=== PATIENT | male | born 1980 | race African-American/Black ===

== ENCOUNTER 2019-01-18 12:02 | Inpatient (IN) | payer OTHER ==
[2019-01-18 14:22] VITALS: BMI 24.4
--- NOTE | 2019-01-18 14:49 | HP ---
COWS - Scale Resting Pulse: 1= [place] 81-100 Sweatin=Flushed/Facial Moisture Restless Observation: 0= Sits Still Pupil Size: 0= Normal to Room Light Bone or Joint Aches: 2= Severe Diffuse Aches Runny Nose/ Eye Tearin= Runny Nose/Eyes GI Upset > 30mins: 1= Stomach Cramp Tremor Observation: 2= Slight Tremor Visible Yawning Observation: 2= >3x During Session Anxiety or Irritability: 2=Irritable/Anxious Goose Flesh Skin: 0=Smooth Skin COWS Score: 14 CIWA Score - Admission Criteria [facility]ASAS Guidelines: Admission for Medically Managed Detox: Requires at least one of the followin. CIWA greater than 12 2. Seizures within the past 24 hours 3. Delirium tremens within the past 24 hours 4. Hallucinations within the past 24 hours 5. Acute intervention needed for co occurring medical disorder 6. Acute intervention needed for co occurring psychiatric disorder 7. Severe withdrawal that cannot be handled at a lower level of care (continued vomiting, continued diarrhea, abnormal vital signs) requiring intravenous medication and/or fluids 8. Admission ROS [facility] - HPI Chief Complaint: I am here to get clean and care myself. Allergies/Adverse Reactions: Allergies Allergy/AdvReac Type Severity Reaction Status Date / Time trazodone AdvReac Verified 01/18/19 14:56 History of Present Illness: pt is a 38yrold male with a history of heroin dependence seeking detox for treatment. Pt is IVD user and states two weeks ago was seen at [facility] for trouble using my right hand and it became numb and an x-ray revealed there was a needle imbedded in my skin. I now realize i need this taken care of when i finish with detox. Exam Limitations: No Limitations - Ebola screening Have you traveled outside of the country in the last 21 days: No Have you had contact with anyone from an Ebola affected area: No Have you been sick,other than usual withdrawal symptoms: No Do you have a fever: No - Review of Systems Constitutional: Chills, Diaphoresis, Night Sweats, Changes in sleep EENT: reports: Tearing Respiratory: reports: No Symptoms reported Cardiac: reports: No Symptoms Reported GI: reports: Poor Appetite, Poor Fluid Intake : reports: Other (h/o of penile priapism) Musculoskeletal: reports: Back Pain (right arm d/t a needle imbedded two weeks ago), Muscle Pain Integumentary: reports: Other (pt has a needle imbedded in right forearm past 2weeks ago.) Neuro: reports: No Symptoms reported Endocrine: reports: No Symptoms Reported Hematology: reports: No Symptoms Reported Psychiatric: reports: Judgement Intact, Mood/Affect Appropiate, Orientated x3, Agitated, Anxious Other Systems: Reviewed and Negative Patient History - Patient Medical History Hx Anemia: No Hx Asthma: No Hx Chronic Obstructive Pulmonary Disease (COPD): No Hx Cancer: No Hx Cardiac Disorders: No Hx Congestive Heart Failure: No Hx Hypertension: No Hx Hypercholesterolemia: No Hx Pacemaker: No HX Cerebrovascular Accident: No Hx Seizures: No Hx Dementia: No Hx Diabetes: No Hx Gastrointestinal Disorders: No Hx Liver Disease: No Hx Genitourinary Disorders: No Hx Sexually Transmitted Disorders: No Hx Renal Disease (ESRD): No Hx Thyroid Disease: No Hx Human Immunodeficiency Virus (HIV): Yes (since 2007; just prescribed syntuza since yesterday) Hx Hepatitis C: No Hx Depression: Yes Hx Suicide Attempt: Yes (two years tried to OD with pills;denies any S/H ideations) Hx Bipolar Disorder: No Hx Schizophrenia: Yes - Patient Surgical History Past Surgical History: Yes Hx Genitourinary Surgery: Yes (two priapism condition 5yrs ago d/t trazadone ) - PPD History Previous Implant?: Yes Documented Results: Negative w/o proof PPD to be Administered?: Yes - Reproductive History Patient is a Female of Child Bearing Age (11 -55 yrs old): No - Smoking Cessation Smoking history: Current every day smoker Have you smoked in the past 12 months: Yes Aproximately how many cigarettes per day: 10 Hx Chewing Tobacco Use: No Initiated information on smoking cessation: Yes 'Breaking Loose' booklet given: 01/18/19 - Substance & Tx. History Hx Alcohol Use: No Hx Substance Use: Yes Substance Use Type: Cocaine, Heroin Hx Substance Use Treatment: Yes (last detox 2yrs ago [facility]) - Substances abused Heroin Substance route: Injection Frequency: Daily Amount used: 3 BAGS Age of first use: 19 Date of last use: 01/16/19 Cocaine Substance route: Injection Frequency: Daily Amount used: $120 Age of first use: 18 Date of last use: 01/17/19 Family Disease History - Family Disease History Family History: Denies Admission Physical Exam [facility] - Vital Signs Vital Signs: Vital Signs - 24 hr 01/18/19 14:07 Temperature 98.6 F Pulse Rate 90 Respiratory 18 Rate Blood Pressure 119/63 - Physical General Appearance: Yes: Appropriately Dressed, Moderate Distress, Tremorous, Irritable, Sweating, Anxious HEENTM: Yes: Hearing grossly Normal, Nasal Congestion, Rhinorrhea Respiratory: Yes: Lungs Clear, Normal Breath Sounds, No Respiratory Distress Neck: Yes: No masses,lesions,Nodules Breast: Yes: Within Normal Limits Cardiology: Yes: Regular Rhythm, Regular Rate, S1, S2 Abdominal: Yes: Normal Bowel Sounds, Non Tender, Soft Genitourinary: Yes: Within Normal Limits Back: Yes: Normal Inspection Musculoskeletal: Yes: full range of Motion, Back pain Extremities: Yes: Normal Capillary Refill, Normal Inspection, Non-Tender, Tremors Neurological: Yes: Fully Oriented, Alert, Normal Response Integumentary: Yes: Normal Color, Diaphoresis Lymphatic: Yes: Within Normal Limits - Diagnostic (1) Opioid dependence with withdrawal Current Visit: Yes Status: Chronic (2) Nicotine dependence Current Visit: Yes Status: Chronic Qualifiers: Nicotine product type: cigarettes Substance use status: uncomplicated Qualified Code(s): F17.210 - Nicotine dependence, cigarettes, uncomplicated (3) Injury due to hypodermic needle Current Visit: Yes Status: Acute Comment: pt will f/u with [facility] after detox. pt had a xray done already. Cleared for Admission [facility] - Detox or Rehab [facility] Level of Care: Medically Managed Detox Regimen/Protocol: Methadone Breathalyzer - Breathalyzer Breathalyzer: 0 Urine Drug Screen - Test Device Lot number: [id number] Expiration date: 10/04/20 - Control Is test valid?: Yes - Results Drug screen NEGATIVE: No Urine drug screen results: THC-Marijuana, SEVEN-Cocaine, MOP-Opiates Inpatient Rehab Admission - Rehab Decision to Admit Inpatient rehab admission?: No
[2019-01-18] MEDS ORDERED: hydrOXYzine PAMOATE 25 MG CAPSULE (FP) PO PRN (14:58)
[2019-01-18] MEDS ORDERED: cloNIDine HCL 0.1 MG TABLET PO PRN (14:58)
[2019-01-18] MEDS ORDERED: NICOTINE POLACRILEX 4 MG GUM BUC PRN (14:58)
[2019-01-18] MEDS ORDERED: P-EPHED 60MG/TRIPROLIDI 2.5MG TABLET PO PRN (14:58)
[2019-01-18] MEDS ORDERED: DICYCLOMINE HCL 10 MG CAPSULE PO PRN (14:58)
[2019-01-18] MEDS ORDERED: ACETAMINOPHEN 325 MG TABLET (FP) PO PRN ×2 (14:58)
[2019-01-18] MEDS ORDERED: MAGNESIUM CITRATE 300 ML BOTTLE PO PRN (14:58)
[2019-01-18] MEDS ORDERED: MENTHOL/PHENOL 1 EACH UD MM PRN (14:58)
[2019-01-18] MEDS ORDERED: ONDANSETRON *ODT* 4 MG TABLET SL PRN (14:58)
[2019-01-18] MEDS ORDERED: MAGNESIUM HYDROX 2400MG/30ML ORAL SUSPENSION 30 ML CUP PO PRN (14:58)
[2019-01-18] MEDS ORDERED: MAG HYDROX/AL HYDROX/SIMETH 30 ML UNIT-DOSE CUP PO PRN (14:58)
[2019-01-18] MEDS: diazePAM 5 MG TABLET PO PRN ×2 (17:10→22:06)
[2019-01-18] MEDS: NICOTINE 21 MG/24 HOURS TOPICAL PATCH TD SCH (17:24)
[2019-01-18] MEDS: THIAMINE HCL 100 MG TABLET (FP) PO SCH (22:05)
[2019-01-18] MEDS ORDERED: METHADONE HCL 10 MG TABLET (FOR DETOX USE ONLY) PO ONE (23:00)
[2019-01-19] MEDS: PRENATAL VITAMINS W/ FOLIC ACID TABLET (FP) PO SCH (09:40)
[2019-01-19] MEDS ORDERED: METHADONE HCL 10 MG TABLET (FOR DETOX USE ONLY) PO ONE (10:00)
[2019-01-19] MEDS: NICOTINE 21 MG/24 HOURS TOPICAL PATCH TD SCH (10:02)
[2019-01-19 10:04] LABS: HEMOGLOBIN 13.5 GM/dL (11.7-16.9); MCH 30.1 pg (25.7-33.7); MCHC 32.9 g/dl (32.0-35.9); MEAN CELL VOLUME 91.7 fl (80-96); MEAN PLT VOLUME 8.9 fl (7.5-11.1); PLATELET COUNT 290 K/MM3 (134-434); RBC 4.48 M/mm3 (4.00-5.60); RDW 15.1 % (11.9-15.9); WHITE BLOOD COUNT 5.5 K/mm3 (4.0-10.0)
[2019-01-19 10:30] LABS: ALBUMIN 3.6 g/dl (3.4-5.0); BILIRUBIN,TOTAL 0.5 mg/dL (0.2-1); CREATININE 0.8 mg/dL (0.55-1.3); POTASSIUM 4.7 mmol/L (3.5-5.1); TOT PROT 8.5 g/dl (6.4-8.2)
--- NOTE | 2019-01-19 10:53 | EKG ---
Test Reason : Blood Pressure : / mmHG Vent. Rate : 082 BPM Atrial Rate : 082 BPM P-R Int : 164 ms QRS Dur : 088 ms QT Int : 390 ms P-R-T Axes : 056 046 042 degrees QTc Int : 455 ms NORMAL SINUS RHYTHM NORMAL ECG NO PREVIOUS ECGS AVAILABLE Confirmed by DEREK BERMAN MD ([id number]) on 01/19/2019 10:53:24 AM Referred By: Confirmed By:DEREK BERMAN MD
--- NOTE | 2019-01-19 10:54 | PN ---
BHS COWS - Scale Resting Pulse: 0= [place] 80 or Below Sweatin= Chills/Flushing Restless Observation: 0= Sits Still Pupil Size: 0= Normal to Room Light Bone or Joint Aches: 4=Acute Joint/Muscle Pain Runny Nose/ Eye Tearin= None GI Upset > 30mins: 0= None Tremor Observation of Outstretched Hands: 2= Slight Tremor Visible Yawning Observation: 1= 1-2x During Session Anxiety or Irritability: 1=Feels Anxious/Irritable Goose Flesh Skin: 0=Smooth Skin COWS Score: 9 BHS Progress Note (SOAP) Subjective: C/O MUSCLE ACHES, ANXIETY,NIGHT SWEATS,INTERMITTENT SLEEP. Objective: 01/19/19 10:53 Vital Signs 01/19/19 01/19/19 01/19/19 03:30 06:01 09:07 Temperature 96.6 F L 96.3 F L Pulse Rate 88 84 Respiratory 18 18 16 Rate Blood Pressure 114/68 93/57 L Laboratory Tests 01/19/19 01/19/19 06:00 06:00 WBC 5.5 RBC 4.48 Hgb 13.5 Hct 41.0 MCV 91.7 MCH 30.1 MCHC 32.9 RDW 15.1 Plt Count 290 MPV 8.9 Sodium 135 L Potassium 4.7 Chloride 102 Carbon Dioxide 26 Anion Gap 7 L BUN 9 Creatinine 0.8 Est GFR (CKD-EPI)AfAm 131.34 Est GFR (CKD-EPI)NonAf 113.32 Random Glucose 86 Calcium 9.0 Total Bilirubin 0.5 AST 93 H ALT 68 H Alkaline Phosphatase 77 Total Protein 8.5 H Albumin 3.6 LABS NOTED SEROLOGY PENDING Assessment: 01/19/19 10:54 WITHDRAWAL SX Plan: CONTINUE DETOX
--- NOTE | 2019-01-19 11:18 | CONSULT ---
[facility] Psychiatric Consult - Data Date of interview: 01/19/19 Admission source: [facility] Identifying data: First admission to [facility] for this 38 y/o AA male self- referred for detoxification (heroin, cocaine). Examined on . Patient is , no children, domiciled ([place] setting), unemployed and supported on SSI benefits. Substance Abuse History: Confirmed by the patient. Details in current [facility] report (reviewed in session) : Smoking history: Current every day smoker. Have you smoked in the past 12 months: Yes. Aproximately how many cigarettes per day : 10. Hx Chewing Tobacco Use: No. Initiated information on smoking cessation: Yes. 'Breaking Loose' booklet given: 01/18/19. - Substance & Tx. History. Hx Alcohol Use: No. Hx Substance Use: Yes. Substance Use Type: Cocaine, Heroin. Hx Substance Use Treatment: Yes (last detox 2yrs ago [facility]). - Substances abused. Heroin. Substance route: Injection. Frequency: Daily. Amount used: 3 BAGS. Age of first use: 19. Date of last use: 01/16/19. Cocaine. Substance route: Injection. Frequency: Daily. Amount used: $120. Age of first use: 18. Date of last use: 01/17/19 Medical History: Remarkable for HIV infection since 2007 (on ART medications), antecedent of priapism (trazodone) and current issue of foreign object (needle) embedded in right forearm. Psychiatric History: Patient endorses a history of multiple psychiatric hospitalizations ([facility], [facility], [place], [facility]). Diagnosed with Schizophrenia + MDD. Medicated with wellbutrin XL 150 mg/day + olanzapine 5 mg/hs. Mr Fitzgerald sees a psychiatrist at [facility] clinic in the [place].Presents with a history of three suicide attempts (overdoses with medications). Most recent attempt occurred three years ago (overdose with ASA). Physical/Sexual Abuse/Trauma History: Patient denies history of abuse. Additional Comment: Urine drug screen results: THC-Marijuana, SEVEN-Cocaine, MOP- Opiates. Noted. Mental Status Exam - Mental Status Exam Alert and Oriented to: Time, Place, Person Cognitive Function: Good Patient Appearance: Disheveled Mood: Withdrawn Affect: Mood Congruent, Constricted Patient Behavior: Fatigued, Appropriate, Cooperative Speech Pattern: Clear, Appropriate Voice Loudness: Normal Thought Process: Goal Oriented Thought Disorder: Not Present Hallucinations: Denies Suicidal Ideation: Denies Homicidal Ideation: Denies Insight/Judgement: Poor Sleep: Well Appetite: Good Muscle strength/Tone: Normal Gait/Station: Normal Psychiatric Findings - Problem List ([place] 1, 2,3) (1) Opioid dependence with withdrawal Current Visit: Yes Status: Acute (2) Cocaine dependence Current Visit: Yes Status: Chronic (3) Nicotine dependence Current Visit: Yes Status: Chronic Qualifiers: Nicotine product type: cigarettes Substance use status: uncomplicated Qualified Code(s): F17.210 - Nicotine dependence, cigarettes, uncomplicated (4) Substance induced mood disorder Current Visit: Yes Status: Chronic (5) History of schizophrenia Current Visit: Yes Status: Chronic - Initial Treatment Plan Initial Treatment Plan: Psychoeducation. Sleep hygiene. Detoxification. Support. AA/NA meetings. Medications resumed as : wellbutrin XL 150 mg po daily + olanzapine 5 mg po hs. Side effects/bvenefits of both drugs are discussed with the patient. Mr Fitzgerald gave verbal consent to MD. Boyle.
[2019-01-19] MEDS: diazePAM 5 MG TABLET PO PRN ×2 (13:45→19:42)
[2019-01-19] MEDS: METHOCARBAMOL 500 MG TABLET PO PRN (19:41)
[2019-01-19] MEDS: OLANZapine 5 MG TABLET PO SCH (22:13)
[2019-01-19] MEDS: THIAMINE HCL 100 MG TABLET (FP) PO SCH (22:13)
[2019-01-19] MEDS: MELATONIN 5 MG TABLETS PO PRN (22:14)
[2019-01-20] MEDS: diazePAM 5 MG TABLET PO PRN ×3 (08:00→22:08)
[2019-01-20] MEDS: BISMUTH SUBSALICYLATE 524 MG/30 ML UD PO PRN (08:00)
[2019-01-20] MEDS: NICOTINE 21 MG/24 HOURS TOPICAL PATCH TD SCH (09:50)
[2019-01-20] MEDS: PRENATAL VITAMINS W/ FOLIC ACID TABLET (FP) PO SCH (09:52)
[2019-01-20] MEDS ORDERED: METHADONE HCL 10 MG TABLET (FOR DETOX USE ONLY) PO ONE (10:00)
--- NOTE | 2019-01-20 11:59 | PN ---
BHS COWS - Scale Resting Pulse: 1= [place] 81-100 Sweatin= Chills/Flushing Restless Observation: 1= Difficult to Sit Still Pupil Size: 0= Normal to Room Light Bone or Joint Aches: 1= Mild Discomfort Runny Nose/ Eye Tearin= None GI Upset > 30mins: 0= None Tremor Observation of Outstretched Hands: 1= Tremor [place], Not Seen Yawning Observation: 0= None Anxiety or Irritability: 1=Feels Anxious/Irritable Goose Flesh Skin: 0=Smooth Skin COWS Score: 6 BHS Progress Note (SOAP) Subjective: feeling ok today rest-welled more energy discuss medication assisted maintenance treatment program Objective: 01/20/19 11:57 Vital Signs Temperature 97.2 F L 01/20/19 09:04 Pulse Rate 86 01/20/19 09:04 Respiratory Rate 18 01/20/19 09:04 Blood Pressure 101/59 L 01/20/19 09:04 O2 Sat by Pulse Oximetry (%) Laboratory Last Values WBC 5.5 K/mm3 (4.0-10.0) 01/19/19 06:00 RBC 4.48 M/mm3 (4.00-5.60) 01/19/19 06:00 Hgb 13.5 GM/dL (11.7-16.9) 01/19/19 06:00 Hct 41.0 % (35.4-49) 01/19/19 06:00 MCV 91.7 fl (80-96) 01/19/19 06:00 MCH 30.1 pg (25.7-33.7) 01/19/19 06:00 MCHC 32.9 g/dl (32.0-35.9) 01/19/19 06:00 RDW 15.1 % (11.9-15.9) 01/19/19 06:00 Plt Count 290 K/MM3 (134-434) 01/19/19 06:00 MPV 8.9 fl (7.5-11.1) 01/19/19 06:00 Sodium 135 mmol/L (136-145) L 01/19/19 06:00 Potassium 4.7 mmol/L (3.5-5.1) 01/19/19 06:00 Chloride 102 mmol/L (98-107) 01/19/19 06:00 Carbon Dioxide 26 mmol/L (21-32) 01/19/19 06:00 Anion Gap 7 MMOL/L (8-16) L 01/19/19 06:00 BUN 9 mg/dL (7-18) 01/19/19 06:00 Creatinine 0.8 mg/dL (0.55-1.3) 01/19/19 06:00 Est GFR (CKD-EPI)AfAm 131.34 01/19/19 06:00 Est GFR (CKD-EPI)NonAf 113.32 01/19/19 06:00 Random Glucose 86 mg/dL (74-106) 01/19/19 06:00 Calcium 9.0 mg/dL (8.5-10.1) 01/19/19 06:00 Total Bilirubin 0.5 mg/dL (0.2-1) 01/19/19 06:00 AST 93 U/L (15-37) H 01/19/19 06:00 ALT 68 U/L (13-61) H 01/19/19 06:00 Alkaline Phosphatase 77 U/L (45-117) 01/19/19 06:00 Total Protein 8.5 g/dl (6.4-8.2) H 01/19/19 06:00 Albumin 3.6 g/dl (3.4-5.0) 01/19/19 06:00 RPR Titer Nonreactive (NONREACTIVE) 01/19/19 06:00 lab noted encourage narcan kit 01/20/19 11:59 Assessment: 01/20/19 11:59 withdrawal sx Plan: continue detox
[2019-01-20] MEDS: IBUPROFEN 400 MG TABLET (FP) PO PRN (17:47)
[2019-01-20] MEDS: OLANZapine 5 MG TABLET PO SCH (22:05)
[2019-01-20] MEDS: MELATONIN 5 MG TABLETS PO PRN (22:05)
[2019-01-20] MEDS: THIAMINE HCL 100 MG TABLET (FP) PO SCH (22:05)
[2019-01-20] MEDS: METHOCARBAMOL 500 MG TABLET PO PRN (22:06)
[2019-01-21] MEDS: diazePAM 5 MG TABLET PO PRN (05:32)
[2019-01-21] MEDS: BISMUTH SUBSALICYLATE 524 MG/30 ML UD PO PRN ×2 (05:33→10:38)
[2019-01-21] MEDS ORDERED: METHADONE HCL 10 MG TABLET (FOR DETOX USE ONLY) PO ONE (10:00)
[2019-01-21] MEDS: NICOTINE 21 MG/24 HOURS TOPICAL PATCH TD SCH (10:36)
[2019-01-21] MEDS: PRENATAL VITAMINS W/ FOLIC ACID TABLET (FP) PO SCH (10:36)
--- NOTE | 2019-01-21 12:29 | PN ---
BHS COWS - Scale Resting Pulse: 1= [place] 81-100 Sweatin= Chills/Flushing Restless Observation: 0= Sits Still Pupil Size: 0= Normal to Room Light Bone or Joint Aches: 1= Mild Discomfort Runny Nose/ Eye Tearin= None GI Upset > 30mins: 0= None Tremor Observation of Outstretched Hands: 1= Tremor [place], Not Seen Yawning Observation: 0= None Anxiety or Irritability: 0= None Goose Flesh Skin: 0=Smooth Skin COWS Score: 4 BHS Progress Note (SOAP) Subjective: mild body ache otherwise doing ok today tolerate food and fluid well Objective: 01/21/19 12:31 Vital Signs Temperature 97.6 F 01/21/19 09:26 Pulse Rate 85 01/21/19 09:26 Respiratory Rate 18 01/21/19 09:26 Blood Pressure 108/70 01/21/19 09:26 O2 Sat by Pulse Oximetry (%) Laboratory Last Values WBC 5.5 K/mm3 (4.0-10.0) 01/19/19 06:00 RBC 4.48 M/mm3 (4.00-5.60) 01/19/19 06:00 Hgb 13.5 GM/dL (11.7-16.9) 01/19/19 06:00 Hct 41.0 % (35.4-49) 01/19/19 06:00 MCV 91.7 fl (80-96) 01/19/19 06:00 MCH 30.1 pg (25.7-33.7) 01/19/19 06:00 MCHC 32.9 g/dl (32.0-35.9) 01/19/19 06:00 RDW 15.1 % (11.9-15.9) 01/19/19 06:00 Plt Count 290 K/MM3 (134-434) 01/19/19 06:00 MPV 8.9 fl (7.5-11.1) 01/19/19 06:00 Sodium 135 mmol/L (136-145) L 01/19/19 06:00 Potassium 4.7 mmol/L (3.5-5.1) 01/19/19 06:00 Chloride 102 mmol/L (98-107) 01/19/19 06:00 Carbon Dioxide 26 mmol/L (21-32) 01/19/19 06:00 Anion Gap 7 MMOL/L (8-16) L 01/19/19 06:00 BUN 9 mg/dL (7-18) 01/19/19 06:00 Creatinine 0.8 mg/dL (0.55-1.3) 01/19/19 06:00 Est GFR (CKD-EPI)AfAm 131.34 01/19/19 06:00 Est GFR (CKD-EPI)NonAf 113.32 01/19/19 06:00 Random Glucose 86 mg/dL (74-106) 01/19/19 06:00 Calcium 9.0 mg/dL (8.5-10.1) 01/19/19 06:00 Total Bilirubin 0.5 mg/dL (0.2-1) 01/19/19 06:00 AST 93 U/L (15-37) H 01/19/19 06:00 ALT 68 U/L (13-61) H 01/19/19 06:00 Alkaline Phosphatase 77 U/L (45-117) 01/19/19 06:00 Total Protein 8.5 g/dl (6.4-8.2) H 01/19/19 06:00 Albumin 3.6 g/dl (3.4-5.0) 01/19/19 06:00 RPR Titer Nonreactive (NONREACTIVE) 01/19/19 06:00 lab noted Assessment: 01/21/19 12:31 mild opiate withdrawal sx Plan: continue detox
[2019-01-21] MEDS: METHOCARBAMOL 500 MG TABLET PO PRN (17:25)
[2019-01-21] MEDS: THIAMINE HCL 100 MG TABLET (FP) PO SCH (22:08)
[2019-01-21] MEDS: OLANZapine 5 MG TABLET PO SCH (22:08)
[2019-01-21] MEDS: MELATONIN 5 MG TABLETS PO PRN (22:09)
[2019-01-22] MEDS: IBUPROFEN 400 MG TABLET (FP) PO PRN (05:56)
[2019-01-22] MEDS ORDERED: METHADONE HCL 5 MG TABLET (FOR DETOX USE ONLY) PO ONE (06:00)
[2019-01-22 09:09] VITALS: BP 123/74; PULSE 95; TEMP 97.8
--- NOTE | 2019-01-22 09:10 | DS ---
[facility] Detox Discharge Summary Admission Date: 01/18/19 Discharge Date: 01/22/19 - History Present History: Opioid Dependence Additional Comments: 38 years old male admitted on 01/18/19 for opiate withdrawal stabilization had diarrhea "last night" x 1 encourage oral fluid and imodium prn feeling better today alert no acute distress aftercare [facility] - Physical Exam Results Vital Signs: Vital Signs Temperature 97.8 F 01/22/19 09:08 Pulse Rate 95 H 01/22/19 09:08 Respiratory Rate 20 01/22/19 09:08 Blood Pressure 123/74 01/22/19 09:08 O2 Sat by Pulse Oximetry (%) Pertinent Admission Physical Exam Findings: opiate withdrawal sx Laboratory Last Values WBC 5.5 K/mm3 (4.0-10.0) 01/19/19 06:00 RBC 4.48 M/mm3 (4.00-5.60) 01/19/19 06:00 Hgb 13.5 GM/dL (11.7-16.9) 01/19/19 06:00 Hct 41.0 % (35.4-49) 01/19/19 06:00 MCV 91.7 fl (80-96) 01/19/19 06:00 MCH 30.1 pg (25.7-33.7) 01/19/19 06:00 MCHC 32.9 g/dl (32.0-35.9) 01/19/19 06:00 RDW 15.1 % (11.9-15.9) 01/19/19 06:00 Plt Count 290 K/MM3 (134-434) 01/19/19 06:00 MPV 8.9 fl (7.5-11.1) 01/19/19 06:00 Sodium 135 mmol/L (136-145) L 01/19/19 06:00 Potassium 4.7 mmol/L (3.5-5.1) 01/19/19 06:00 Chloride 102 mmol/L (98-107) 01/19/19 06:00 Carbon Dioxide 26 mmol/L (21-32) 01/19/19 06:00 Anion Gap 7 MMOL/L (8-16) L 01/19/19 06:00 BUN 9 mg/dL (7-18) 01/19/19 06:00 Creatinine 0.8 mg/dL (0.55-1.3) 01/19/19 06:00 Est GFR (CKD-EPI)AfAm 131.34 01/19/19 06:00 Est GFR (CKD-EPI)NonAf 113.32 01/19/19 06:00 Random Glucose 86 mg/dL (74-106) 01/19/19 06:00 Calcium 9.0 mg/dL (8.5-10.1) 01/19/19 06:00 Total Bilirubin 0.5 mg/dL (0.2-1) 01/19/19 06:00 AST 93 U/L (15-37) H 01/19/19 06:00 ALT 68 U/L (13-61) H 01/19/19 06:00 Alkaline Phosphatase 77 U/L (45-117) 01/19/19 06:00 Total Protein 8.5 g/dl (6.4-8.2) H 01/19/19 06:00 Albumin 3.6 g/dl (3.4-5.0) 01/19/19 06:00 RPR Titer Nonreactive (NONREACTIVE) 01/19/19 06:00 lab noted - Treatment Hospital Course: Detox Protocol Followed, Detoxed Safely, Responded well, Discharged Condition Good, Rehab Referral Accepted Patient has Accepted a Rehab Referral to: [facility] - Medication Discharge Medications: Ambulatory Orders Bupropion HCl [Wellbutrin Xl -] 150 mg PO DAILY 01/18/19 Darunavir/Cob/Emtri/Tenof Alaf [Symtuza [id number] mg Tab] 1 each PO DAILY 01/18/19 Olanzapine [Zyprexa -] 5 mg PO DAILY 01/18/19 Naloxone HCl [Narcan] 4 mg NS ASDIR 01/20/19 - Diagnosis (1) Opioid dependence with withdrawal Current Visit: Yes Status: Acute (2) Nicotine dependence Current Visit: Yes Status: Acute Qualifiers: Nicotine product type: cigarettes Substance use status: in withdrawal Qualified Code(s): F17.213 - Nicotine dependence, cigarettes, with withdrawal (3) Substance induced mood disorder Current Visit: Yes Status: Suspected (4) HIV (human immunodeficiency virus infection) Current Visit: Yes Status: Chronic Qualifiers: HIV symptom status: asymptomatic Qualified Code(s): Z21 - Asymptomatic human immunodeficiency virus [HIV] infection status - AMA Did Patient Leave Against Medical Advice: No
[2019-01-22] MEDS ORDERED: METHADONE HCL 10 MG TABLET (FOR DETOX USE ONLY) PO ONE (10:00)
[2019-01-22] MEDS: NICOTINE 21 MG/24 HOURS TOPICAL PATCH TD SCH (10:12)
[2019-01-22] MEDS: PRENATAL VITAMINS W/ FOLIC ACID TABLET (FP) PO SCH (10:12)
[2019-01-23] MEDS ORDERED: METHADONE HCL 5 MG TABLET (FOR DETOX USE ONLY) PO SCH (06:00)
== END 2019-01-22 12:30 | disposition other institution (70) | DRG 773 ==
LOC: YASAS 12:02 → Y3N 15:16
PROVIDERS: ADMIT Surgery; ATTEND Surgery
PROC: HZ2ZZZZ Detoxification Services for Substance Abuse Treatment (ICD-10-PCS; principal; 2019-01-18)
DX: F11.23 Opioid dependence with withdrawal (principal); F14.20 Cocaine dependence, uncomplicated; F17.213 Nicotine dependence, cigarettes, with withdrawal; F19.24 Other psychoactive substance dependence with psychoactive substance-induced mood disorder; F20.9 Schizophrenia, unspecified; Z21 Asymptomatic human immunodeficiency virus [HIV] infection status; Z91.5 Personal history of self-harm
CPT/HCPCS: 36415; 80053; 85027; 86593; 93005; 93010; J0735

== ENCOUNTER 2019-04-07 08:50 | Inpatient (IN) | payer OTHER ==
[2019-04-07 09:24] VITALS: BMI 23.0
--- NOTE | 2019-04-07 09:36 | HP ---
COWS - Scale Resting Pulse: 0= [place] 80 or Below Sweatin= Chills/Flushing Restless Observation: 1= Difficult to Sit Still Pupil Size: 1= Pupils >than Normal Bone or Joint Aches: 2= Severe Diffuse Aches Runny Nose/ Eye Tearin= Runny Nose/Eyes GI Upset > 30mins: 2= Nausea/Diarrhea Tremor Observation: 2= Slight Tremor Visible Yawning Observation: 0= None Anxiety or Irritability: 2=Irritable/Anxious Goose Flesh Skin: 0=Smooth Skin COWS Score: 13 CIWA Score - Admission Criteria [facility] Guidelines: Admission for Medically Managed Detox: Requires at least one of the followin. CIWA greater than 12 2. Seizures within the past 24 hours 3. Delirium tremens within the past 24 hours 4. Hallucinations within the past 24 hours 5. Acute intervention needed for co occurring medical disorder 6. Acute intervention needed for co occurring psychiatric disorder 7. Severe withdrawal that cannot be handled at a lower level of care (continued vomiting, continued diarrhea, abnormal vital signs) requiring intravenous medication and/or fluids 8. Admission ROS [facility] - HPI Chief Complaint: I need help to stop using heroin and cocaine Allergies/Adverse Reactions: Allergies Allergy/AdvReac Type Severity Reaction Status Date / Time trazodone AdvReac Verified 04/07/19 09:17 History of Present Illness: this 38 years old male with heroin and cocaine dependence,seeking detox,seen at [facility] last night, had previous admissions in detox and rehab,last [facility] 01/18/19 to 01/22/19,rehab 01/22/19 to 01/29/19 but relapsing hiv sine 2007 on med fell 2 days ago has abrasion in both knees nicotine dependence 10 cigarette/day,would like to have nicotine patch and gum schizophrenia longest sobriety 6 months - Ebola screening Have you traveled outside of the country in the last 21 days: No (N) Have you had contact with anyone from an Ebola affected area: No Do you have a fever: No - Review of Systems Constitutional: Chills, Loss of Appetite, Malaise, Night Sweats, Changes in sleep, Weakness EENT: reports: Tearing, Nose Congestion Respiratory: reports: No Symptoms reported Cardiac: reports: No Symptoms Reported GI: reports: Nausea, Poor Appetite, Indigestion : reports: No Symptoms Reported Integumentary: reports: Dryness Neuro: reports: Headache, Tremors Endocrine: reports: No Symptoms Reported Hematology: reports: No Symptoms Reported, Other (hiv) Psychiatric: reports: No Sypmtoms Reported, Judgement Intact, Mood/Affect Appropiate, Orientated x3, other (schizophrenia) Patient History - Patient Medical History Hx Anemia: No Hx Asthma: No Hx Chronic Obstructive Pulmonary Disease (COPD): No Hx Cancer: No Hx Cardiac Disorders: No Hx Congestive Heart Failure: No Hx Hypertension: No Hx Hypercholesterolemia: No Hx Pacemaker: No HX Cerebrovascular Accident: No Hx Seizures: No Hx Dementia: No Hx Diabetes: No Hx Gastrointestinal Disorders: No Hx Liver Disease: No Hx Genitourinary Disorders: No Hx Sexually Transmitted Disorders: Yes Hx Renal Disease (ESRD): No Hx Thyroid Disease: No Hx Human Immunodeficiency Virus (HIV): Yes (since 2007; just prescribed syntuza since yesterday) Hx Hepatitis C: No Hx Depression: Yes Hx Suicide Attempt: Yes (overdose 2018) Hx Bipolar Disorder: No Hx Schizophrenia: Yes (on med) Other Medical History: no suicidal,no homicidal - Patient Surgical History Past Surgical History: Yes Hx Neurologic Surgery: No Hx Cataract Extraction: No Hx Cardiac Surgery: No Hx Lung Surgery: No Hx Breast Surgery: No Hx Breast Biopsy: No Hx Abdominal Surgery: No Hx Appendectomy: No Hx Cholecystectomy: No Hx Genitourinary Surgery: Yes (two priapism condition 5yrs ago d/t trazadone ) Hx Section: No Hx Orthopedic Surgery: No Anesthesia Reaction: No - PPD History Previous Implant?: Yes Documented Results: Negative w/proof Implanted On Prior [facility] Admission?: Yes Date: 01/20/19 Results: 0 mm PPD to be Administered?: No - Smoking Cessation Smoking history: Current every day smoker Have you smoked in the past 12 months: Yes Aproximately how many cigarettes per day: 10 Hx Chewing Tobacco Use: No Initiated information on smoking cessation: Yes 'Breaking Loose' booklet given: 04/07/19 - Substance & Tx. History Hx Alcohol Use: No Hx Substance Use: Yes Substance Use Type: Cocaine, Heroin Hx Substance Use Treatment: Yes ([facility] 01/18/19 to 01/22/19 rehab 01/22/19 to ) - Substances abused Heroin Substance route: Injection Frequency: Daily Amount used: 7 BAGS Age of first use: 19 Date of last use: 04/06/19 Cocaine Substance route: Injection Frequency: Daily Amount used: $60 Age of first use: 18 Date of last use: 04/06/19 Family Disease History - Family Disease History Family History: Denies Admission Physical Exam [facility] - Vital Signs Vital Signs: Vital Signs - 24 hr 04/07/19 04/07/19 09:21 09:25 Temperature 96.8 F L 96.8 F L Pulse Rate 68 68 Respiratory 18 18 Rate Blood Pressure 107/78 107/78 - Physical General Appearance: Yes: Moderate Distress, Tremorous, Irritable, Sweating, Anxious HEENTM: Yes: Normal ENT Inspection, ANNAMARIE, Pharynx Normal Respiratory: Yes: Within Normal Limits, Lungs Clear, Normal Breath Sounds Neck: Yes: Within Normal Limits, Supple, Trachea in good position Breast: Yes: Within Normal Limits Cardiology: Yes: Within Normal Limits, Regular Rhythm, Regular Rate, S1, S2 Abdominal: Yes: Within Normal Limits, Normal Bowel Sounds, Non Tender, Flat, Soft Genitourinary: Yes: Within Normal Limits Back: Yes: Muscle Spasm Musculoskeletal: Yes: Back pain, Joint Stiffness, Muscle Pain Extremities: Yes: Tremors Neurological: Yes: manager of change II-XII NML intact, Fully Oriented, Alert, Motor Strength 5/5 Integumentary: Yes: Dry, Other (abrasions both knees) Lymphatic: Yes: Within Normal Limits - Diagnostic (1) Opioid dependence with withdrawal Current Visit: Yes Status: Acute (2) Nicotine dependence Current Visit: Yes Status: Chronic Qualifiers: Nicotine product type: cigarettes Substance use status: in withdrawal Qualified Code(s): F17.213 - Nicotine dependence, cigarettes, with withdrawal (3) Cocaine dependence Current Visit: Yes Status: Chronic (4) HIV (human immunodeficiency virus infection) Current Visit: No Status: Chronic Qualifiers: HIV symptom status: asymptomatic Qualified Code(s): Z21 - Asymptomatic human immunodeficiency virus [HIV] infection status (5) History of schizophrenia Current Visit: No Status: Chronic (6) Abrasion of knee, bilateral Current Visit: Yes Status: Acute Cleared for Admission [facility] - Detox or Rehab [facility] Level of Care: Medically Managed Detox Regimen/Protocol: Methadone Breathalyzer - Breathalyzer Breathalyzer: 0 Urine Drug Screen - Test Device Lot number: [id number] Expiration date: 01/01/21 - Control Is test valid?: Yes - Results Drug screen NEGATIVE: No Urine drug screen results: THC-Marijuana, SEVEN-Cocaine, MOP-Opiates, OXY- Oxycodone, BZO-Benzodiazepines Inpatient Rehab Admission - Rehab Decision to Admit Inpatient rehab admission?: No
[2019-04-07] MEDS ORDERED: ACETAMINOPHEN 325 MG TABLET (FP) PO PRN ×2 (09:48)
[2019-04-07] MEDS ORDERED: hydrOXYzine PAMOATE 25 MG CAPSULE (FP) PO PRN (09:48)
[2019-04-07] MEDS ORDERED: NICOTINE POLACRILEX 2 MG GUM BUC PRN (09:48)
[2019-04-07] MEDS ORDERED: cloNIDine HCL 0.1 MG TABLET PO PRN (09:48)
[2019-04-07] MEDS ORDERED: MAG HYDROX/AL HYDROX/SIMETH 30 ML UNIT-DOSE CUP PO PRN (09:48)
[2019-04-07] MEDS ORDERED: METHOCARBAMOL 500 MG TABLET PO PRN (09:48)
[2019-04-07] MEDS ORDERED: MENTHOL/PHENOL 1 EACH UD MM PRN (09:48)
[2019-04-07] MEDS ORDERED: IBUPROFEN 400 MG TABLET (FP) PO PRN (09:48)
[2019-04-07] MEDS ORDERED: MAGNESIUM CITRATE 300 ML BOTTLE PO PRN (09:48)
[2019-04-07] MEDS ORDERED: MAGNESIUM HYDROX 2400MG/30ML ORAL SUSPENSION 30 ML CUP PO PRN (09:48)
[2019-04-07] MEDS ORDERED: METHADONE HCL 10 MG TABLET (FOR DETOX USE ONLY) PO ONE (09:48)
[2019-04-07] MEDS ORDERED: BISMUTH SUBSALICYLATE 524 MG/30 ML UD PO PRN (09:48)
[2019-04-07] MEDS: NICOTINE 21 MG/24 HOURS TOPICAL PATCH TD SCH (11:21)
[2019-04-07] MEDS: PRENATAL VITAMINS W/ FOLIC ACID TABLET (FP) PO SCH (11:21)
[2019-04-07] MEDS: diazePAM 5 MG TABLET PO PRN (11:22)
--- NOTE | 2019-04-07 11:52 | CONSULT ---
[facility] Psychiatric Consult - Data Date of interview: 04/07/19 Admission source: [facility] Identifying data: Patient is a 38 year old male, currently going through a divorce, without children, unemployed, residing in an [place], and is currently receiving SSI. This is one of multiple admissions for patient. Patient admitted to for opiate and cocaine dependence. Substance Abuse History: - Smoking Cessation. Smoking history: Current every day smoker. Have you smoked in the past 12 months: Yes. Aproximately how many cigarettes per day: 10. Hx Chewing Tobacco Use: No. Initiated information on smoking cessation: Yes. 'Breaking Loose' booklet given: 04/07/19. - Substance & Tx. History. Hx Alcohol Use: No. Hx Substance Use: Yes. Substance Use Type : Cocaine, Heroin. Hx Substance Use Treatment: Yes ([facility] 01/18/19 to 01/22/19 rehab 01/22/19 to 01/29/19). - Substances abused. Heroin. Substance route : Injection. Frequency: Daily. Amount used: 7 BAGS. Age of first use: 19. Date of last use: 04/06/19. Cocaine. Substance route: Injection. Frequency : Daily. Amount used: $60. Age of first use: 18. Date of last use: 04/06/19 Medical History: HIV Psychiatric History: Patient's first psychiatrc contact was at 19 years of age after a suicide attempt via overdose on aspirin which led to an admission to [facility] in [facility]. He was prescribed riperdal and wellbutrin. He is also known to [facility], [facility] and [facility]. Diagnosis of schizophrenia and depression. He reports history auditory/visual halluciation and parania ideations. Patient's most recent psychiatric hospitalization was last month at [facility] after exhibiting visual hallucinations. He reports recieving the haldol deconoate injection upon discharge on 03/18. Patient is currently provided with outpatient care at [facility] and is prescribed haldol 5mg BID + [place] 300mg BID (external records show a prescription of haldol on 03/29/19 (5mg tablets,30 days 60 tablets) and [place] 150mg (30 days 180 tablets.). States that his outpatient psychiatrist wants to continue with PO haldol. Mr. Fitzgerald reports taking his medications two days ago. At present, patient denies auditory /visual hallucinations, suicidal/homicidal ideation. Physical/Sexual Abuse/Trauma History: denies. Additional Comment: Priapism from trazodone. Mental Status Exam - Mental Status Exam Alert and Oriented to: Time, Place, Person Cognitive Function: Good Patient Appearance: Well Groomed Mood: Euthymic Affect: Mood Congruent Patient Behavior: Cooperative Speech Pattern: Appropriate Voice Loudness: Normal Thought Process: Goal Oriented Thought Disorder: Not Present Hallucinations: Denies Suicidal Ideation: Denies Homicidal Ideation: Denies Insight/Judgement: Poor Sleep: Fair Appetite: Fair Muscle strength/Tone: Normal Gait/Station: Normal Psychiatric Findings - Problem List ([place] 1, 2,3) (1) Schizophrenia Current Visit: Yes Status: Chronic (2) Nicotine dependence Current Visit: Yes Status: Chronic Qualifiers: Nicotine product type: cigarettes Substance use status: in withdrawal Qualified Code(s): F17.213 - Nicotine dependence, cigarettes, with withdrawal (3) Opioid dependence with withdrawal Current Visit: Yes Status: Acute (4) Cocaine dependence Current Visit: Yes Status: Chronic - Initial Treatment Plan Initial Treatment Plan: Psychoeducation provided. Detoxification in progress. Will order Haldol 5mg BID. Will hold lithium until lab results are complete. [place] level ordered for 04/08/19. Benefits and side effects discussed. Verbal consent given.
[2019-04-07] MEDS: MELATONIN 5 MG TABLETS PO PRN (22:32)
[2019-04-07] MEDS: HALOPERIDOL 5 MG TABLET (FP) PO SCH (22:33)
[2019-04-07] MEDS: THIAMINE HCL 100 MG TABLET (FP) PO SCH (22:33)
[2019-04-08] MEDS ORDERED: METHADONE HCL 5 MG TABLET (FOR DETOX USE ONLY) ONE (09:47)
[2019-04-08] MEDS ORDERED: METHADONE HCL 10 MG TABLET (FOR DETOX USE ONLY) ONE (09:47)
[2019-04-08] MEDS ORDERED: METHADONE (DETOX) 20 MG, METHADONE (DETOX) 5 MG PO ONE (10:00)
--- NOTE | 2019-04-08 10:16 | PN ---
BHS COWS - Scale Resting Pulse: 0= [place] 80 or Below Sweatin= Chills/Flushing Restless Observation: 1= Difficult to Sit Still Pupil Size: 0= Normal to Room Light Bone or Joint Aches: 2= Severe Diffuse Aches Runny Nose/ Eye Tearin= Runny Nose/Eyes GI Upset > 30mins: 0= None Tremor Observation of Outstretched Hands: 2= Slight Tremor Visible Yawning Observation: 2= >3x During Session Anxiety or Irritability: 1=Feels Anxious/Irritable Goose Flesh Skin: 0=Smooth Skin COWS Score: 11 BHS Progress Note (SOAP) Subjective: body aches sweats mild shakes interrupted sleep agitation Objective: 04/08/19 10:15 Vital Signs Temperature 98.1 F 04/08/19 09:24 Pulse Rate 71 04/08/19 09:24 Respiratory Rate 18 04/08/19 09:24 Blood Pressure 101/59 L 04/08/19 09:24 O2 Sat by Pulse Oximetry (%) labs pending aaox3 ambulating no acute distress Assessment: 04/08/19 10:16 withdrawal sx Plan: continue detox increase fluids pending labs
[2019-04-08] MEDS: PRENATAL VITAMINS W/ FOLIC ACID TABLET (FP) PO SCH (10:18)
[2019-04-08] MEDS: HALOPERIDOL 5 MG TABLET (FP) PO SCH ×2 (10:18→22:16)
[2019-04-08] MEDS: NICOTINE 21 MG/24 HOURS TOPICAL PATCH TD SCH (10:18)
[2019-04-08 10:50] LABS: HEMATOCRIT 38.7 % (35.4-49); HEMOGLOBIN 13.1 GM/dL (11.7-16.9); MCH 30.9 pg (25.7-33.7); MCHC 33.8 g/dl (32.0-35.9); MEAN CELL VOLUME 91.4 fl (80-96); MEAN PLT VOLUME 8.8 fl (7.5-11.1); PLATELET COUNT 262 K/MM3 (134-434); RBC 4.24 M/mm3 (4.00-5.60); RDW 15.3 % (11.9-15.9); WHITE BLOOD COUNT 4.9 K/mm3 (4.0-10.0)
[2019-04-08 11:15] LABS: ALBUMIN 2.9 g/dl (3.4-5.0); BILIRUBIN,TOTAL 0.1 mg/dL (0.2-1); BLOOD UREA NITROGEN 10.2 mg/dL (7-18); CALCIUM 8.9 mg/dL (8.5-10.1); TOT PROT 6.4 g/dl (6.4-8.2)
[2019-04-08] MEDS ORDERED: PNEUMOC 13-VAL CONJ-DIP CRM/PF 0.5 ML DISP.SYRIN IM ONE (12:00)
[2019-04-08] MEDS: diazePAM 5 MG TABLET PO PRN (22:16)
[2019-04-08] MEDS: THIAMINE HCL 100 MG TABLET (FP) PO SCH (22:16)
[2019-04-08] MEDS: MELATONIN 5 MG TABLETS PO PRN (22:17)
--- NOTE | 2019-04-09 09:21 | PN ---
[facility] Progress Note Note: Psychiatric nurse practitioner note: Patient in agreement to resume lithium 300mg BID. Patient reports noncompliance. States he last took lithium last week. [place] level 0.1mg. External records show a 30 day prescription of lithium 150mg (180 tablets for # 30 days). Benefits and side effects discussed. Verbal consent given.
[2019-04-09] MEDS ORDERED: METHADONE HCL 10 MG TABLET (FOR DETOX USE ONLY) PO ONE (10:00)
[2019-04-09] MEDS: PRENATAL VITAMINS W/ FOLIC ACID TABLET (FP) PO SCH (10:14)
[2019-04-09] MEDS: HALOPERIDOL 5 MG TABLET (FP) PO SCH ×2 (10:14→22:13)
[2019-04-09] MEDS: LITHIUM CARBONATE 300 MG CAPSULE (FP) PO SCH ×2 (10:16→22:13)
[2019-04-09] MEDS: NICOTINE 21 MG/24 HOURS TOPICAL PATCH TD SCH (10:16)
--- NOTE | 2019-04-09 11:47 | PN ---
BHS COWS - Scale Resting Pulse: 1= [place] 81-100 Sweatin= Chills/Flushing Restless Observation: 1= Difficult to Sit Still Pupil Size: 0= Normal to Room Light Bone or Joint Aches: 2= Severe Diffuse Aches Runny Nose/ Eye Tearin= Nasal Congestion GI Upset > 30mins: 0= None Tremor Observation of Outstretched Hands: 1= Tremor [place], Not Seen Yawning Observation: 1= 1-2x During Session Anxiety or Irritability: 1=Feels Anxious/Irritable Goose Flesh Skin: 0=Smooth Skin COWS Score: 9 BHS Progress Note (SOAP) Subjective: sweats anxiety Objective: 04/09/19 11:47 Vital Signs Temperature 97.2 F L 04/09/19 09:35 Pulse Rate 86 04/09/19 09:35 Respiratory Rate 18 04/09/19 09:35 Blood Pressure 115/71 04/09/19 09:35 O2 Sat by Pulse Oximetry (%) Laboratory Tests 04/08/19 04/08/19 04/08/19 07:00 07:00 07:00 WBC 4.9 RBC 4.24 Hgb 13.1 Hct 38.7 MCV 91.4 MCH 30.9 MCHC 33.8 RDW 15.3 Plt Count 262 MPV 8.8 Sodium 140 Potassium 4.0 Chloride 106 Carbon Dioxide 27 Anion Gap 7 L BUN 10.2 Creatinine 1.0 Est GFR (CKD-EPI)AfAm 110.17 Est GFR (CKD-EPI)NonAf 95.05 Random Glucose 104 Calcium 8.9 Total Bilirubin 0.1 L AST 15 ALT 28 Alkaline Phosphatase 67 Total Protein 6.4 Albumin 2.9 L [place] RPR Titer Nonreactive 04/08/19 07:00 WBC RBC Hgb Hct MCV MCH MCHC RDW Plt Count MPV Sodium Potassium Chloride Carbon Dioxide Anion Gap BUN Creatinine Est GFR (CKD-EPI)AfAm Est GFR (CKD-EPI)NonAf Random Glucose Calcium Total Bilirubin AST ALT Alkaline Phosphatase Total Protein Albumin [place] 0.1 L RPR Titer aaox3 ambulating no acute distress Assessment: 04/09/19 11:57 withdrawal sx Plan: continue detox increase fluids
[2019-04-09] MEDS: diazePAM 5 MG TABLET PO PRN ×2 (15:17→22:13)
[2019-04-09] MEDS: THIAMINE HCL 100 MG TABLET (FP) PO SCH (22:13)
[2019-04-10] MEDS ORDERED: METHADONE HCL 5 MG TABLET (FOR DETOX USE ONLY) ONE (09:24)
[2019-04-10] MEDS ORDERED: METHADONE HCL 10 MG TABLET (FOR DETOX USE ONLY) ONE (09:24)
[2019-04-10] MEDS ORDERED: METHADONE (DETOX) 10 MG, METHADONE (DETOX) 5 MG PO ONE (10:00)
[2019-04-10] MEDS: PRENATAL VITAMINS W/ FOLIC ACID TABLET (FP) PO SCH (10:23)
[2019-04-10] MEDS: HALOPERIDOL 5 MG TABLET (FP) PO SCH ×2 (10:23→22:08)
[2019-04-10] MEDS: NICOTINE 21 MG/24 HOURS TOPICAL PATCH TD SCH (10:23)
--- NOTE | 2019-04-10 10:47 | PN ---
BHS COWS - Scale Resting Pulse: 0= [place] 80 or Below Sweatin= Chills/Flushing Restless Observation: 0= Sits Still Pupil Size: 0= Normal to Room Light Bone or Joint Aches: 1= Mild Discomfort Runny Nose/ Eye Tearin= Nasal Congestion GI Upset > 30mins: 0= None Tremor Observation of Outstretched Hands: 1= Tremor [place], Not Seen Yawning Observation: 1= 1-2x During Session Anxiety or Irritability: 1=Feels Anxious/Irritable Goose Flesh Skin: 0=Smooth Skin COWS Score: 6 BHS Progress Note (SOAP) Subjective: sweats mild shakes interrupted sleep Objective: 04/10/19 10:46 Vital Signs Temperature 97.9 F 04/10/19 09:52 Pulse Rate 76 04/10/19 09:52 Respiratory Rate 18 04/10/19 09:52 Blood Pressure 114/60 04/10/19 09:52 O2 Sat by Pulse Oximetry (%) Laboratory Tests 04/08/19 04/08/19 04/08/19 07:00 07:00 07:00 WBC 4.9 RBC 4.24 Hgb 13.1 Hct 38.7 MCV 91.4 MCH 30.9 MCHC 33.8 RDW 15.3 Plt Count 262 MPV 8.8 Sodium 140 Potassium 4.0 Chloride 106 Carbon Dioxide 27 Anion Gap 7 L BUN 10.2 Creatinine 1.0 Est GFR (CKD-EPI)AfAm 110.17 Est GFR (CKD-EPI)NonAf 95.05 Random Glucose 104 Calcium 8.9 Total Bilirubin 0.1 L AST 15 ALT 28 Alkaline Phosphatase 67 Total Protein 6.4 Albumin 2.9 L [place] RPR Titer Nonreactive 04/08/19 07:00 WBC RBC Hgb Hct MCV MCH MCHC RDW Plt Count MPV Sodium Potassium Chloride Carbon Dioxide Anion Gap BUN Creatinine Est GFR (CKD-EPI)AfAm Est GFR (CKD-EPI)NonAf Random Glucose Calcium Total Bilirubin AST ALT Alkaline Phosphatase Total Protein Albumin [place] 0.1 L RPR Titer labs noted aaox3 ambulating no acute distress Assessment: 04/10/19 10:47 mild withdrawal sx Plan: continue detox increase fluids
[2019-04-10] MEDS: LITHIUM CARBONATE 300 MG CAPSULE (FP) PO SCH ×2 (12:37→22:08)
[2019-04-10] MEDS: THIAMINE HCL 100 MG TABLET (FP) PO SCH (22:08)
[2019-04-10] MEDS: MELATONIN 5 MG TABLETS PO PRN (22:08)
[2019-04-11] MEDS ORDERED: METHADONE HCL 10 MG TABLET (FOR DETOX USE ONLY) PO ONE (10:00)
[2019-04-11] MEDS: HALOPERIDOL 5 MG TABLET (FP) PO SCH ×2 (10:44→22:05)
[2019-04-11] MEDS: NICOTINE 21 MG/24 HOURS TOPICAL PATCH TD SCH (10:45)
[2019-04-11] MEDS: PRENATAL VITAMINS W/ FOLIC ACID TABLET (FP) PO SCH (10:45)
[2019-04-11] MEDS: LITHIUM CARBONATE 300 MG CAPSULE (FP) PO SCH ×2 (10:45→22:05)
--- NOTE | 2019-04-11 13:54 | PN ---
BHS COWS - Scale Resting Pulse: 1= [place] 81-100 Sweatin= No chills or Flushing Restless Observation: 0= Sits Still Pupil Size: 0= Normal to Room Light Bone or Joint Aches: 1= Mild Discomfort Runny Nose/ Eye Tearin= Nasal Congestion GI Upset > 30mins: 0= None Tremor Observation of Outstretched Hands: 1= Tremor [place], Not Seen Yawning Observation: 1= 1-2x During Session Anxiety or Irritability: 0= None Goose Flesh Skin: 0=Smooth Skin COWS Score: 5 BHS Progress Note (SOAP) Subjective: feeling fine Objective: 04/11/19 13:54 Vital Signs Temperature 97.9 F 04/11/19 13:38 Pulse Rate 69 04/11/19 13:38 Respiratory Rate 18 04/11/19 13:38 Blood Pressure 115/59 L 04/11/19 13:38 O2 Sat by Pulse Oximetry (%) aaox3 ambulating no acute distress Assessment: 04/11/19 13:54 mild to no withdrawals noted Plan: continue and complete detox d/c in am
[2019-04-11 21:43] LABS: URINE APPEARANCE CLEAR; URINE BILIRUBIN NEGATIVE (NEGATIVE); URINE COLOR YELLOW; URINE GLUCOSE (UA) NEGATIVE (NEGATIVE); URINE KETONE NEGATIVE (NEGATIVE)
[2019-04-11 21:44] LABS: PH,URINE 8.5 (5.0-8.0); URINE LEUK ESTERASE NEGATIVE (NEGATIVE); URINE NITRITE NEGATIVE (NEGATIVE); URINE PROTEIN NEGATIVE (NEGATIVE); URINE UROBILINOGEN 0.2 mg/dL (0.2-1.0)
[2019-04-11] MEDS: MELATONIN 5 MG TABLETS PO PRN (22:05)
[2019-04-11] MEDS: THIAMINE HCL 100 MG TABLET (FP) PO SCH (22:05)
[2019-04-12] MEDS ORDERED: METHADONE HCL 5 MG TABLET (FOR DETOX USE ONLY) PO ONE (06:00)
--- NOTE | 2019-04-12 09:45 | DS ---
[facility] Detox Discharge Summary Admission Date: 04/07/19 Discharge Date: 04/12/19 - History Present History: Cocaine Dependence, Opioid Dependence - Physical Exam Results Vital Signs: Vital Signs Temperature 97.7 F 04/12/19 08:31 Pulse Rate 98 H 04/12/19 08:31 Respiratory Rate 18 04/12/19 08:31 Blood Pressure 119/76 04/12/19 08:31 O2 Sat by Pulse Oximetry (%) Pertinent Admission Physical Exam Findings: pt arrived in withdrawals Laboratory Tests 04/08/19 04/08/19 04/08/19 07:00 07:00 07:00 WBC 4.9 RBC 4.24 Hgb 13.1 Hct 38.7 MCV 91.4 MCH 30.9 MCHC 33.8 RDW 15.3 Plt Count 262 MPV 8.8 Sodium 140 Potassium 4.0 Chloride 106 Carbon Dioxide 27 Anion Gap 7 L BUN 10.2 Creatinine 1.0 Est GFR (CKD-EPI)AfAm 110.17 Est GFR (CKD-EPI)NonAf 95.05 Random Glucose 104 Calcium 8.9 Total Bilirubin 0.1 L AST 15 ALT 28 Alkaline Phosphatase 67 Total Protein 6.4 Albumin 2.9 L Urine Color Urine Appearance Urine pH Ur Specific [place] Urine Protein Urine Glucose (UA) Urine Ketones Urine Blood Urine Nitrite Urine Bilirubin Urine Urobilinogen Ur Leukocyte Esterase [place] RPR Titer Nonreactive 04/08/19 04/11/19 07:00 14:57 WBC RBC Hgb Hct MCV MCH MCHC RDW Plt Count MPV Sodium Potassium Chloride Carbon Dioxide Anion Gap BUN Creatinine Est GFR (CKD-EPI)AfAm Est GFR (CKD-EPI)NonAf Random Glucose Calcium Total Bilirubin AST ALT Alkaline Phosphatase Total Protein Albumin Urine Color Yellow Urine Appearance Clear Urine pH 8.5 H Ur Specific [place] 1.009 L Urine Protein Negative Urine Glucose (UA) Negative Urine Ketones Negative Urine Blood Negative Urine Nitrite Negative Urine Bilirubin Negative Urine Urobilinogen 0.2 Ur Leukocyte Esterase Negative [place] 0.1 L RPR Titer today pt is aaox3 ambulating no acute distress no s/s of withdrawals - Treatment Hospital Course: Detox Protocol Followed, Detoxed Safely, Responded well, Discharged Condition Good, Rehab Referral Accepted Patient has Accepted a Rehab Referral to: referral to [facility] inpatient [facility] - Medication Discharge Medications: Ambulatory Orders Bupropion HCl [Wellbutrin Xl -] 150 mg PO DAILY 01/18/19 Olanzapine [Zyprexa -] 5 mg PO DAILY 01/18/19 Darunavir/Cob/Emtri/Tenof Alaf [Symtuza [id number] mg Tab] 1 each PO DAILY # 30 tablet 01/29/19 Haloperidol [Haldol -] 5 mg PO BID 04/07/19 [place] Carbonate [Eskalith -] 300 mg PO BID 04/09/19 - Diagnosis (1) Abrasion of knee, bilateral Current Visit: Yes Status: Acute (2) Opioid dependence with withdrawal Current Visit: Yes Status: Chronic (3) Cocaine dependence Current Visit: Yes Status: Chronic Qualifiers: Substance use status: uncomplicated Qualified Code(s): F14.20 - Cocaine dependence, uncomplicated (4) Nicotine dependence Current Visit: Yes Status: Chronic Qualifiers: Nicotine product type: cigarettes Substance use status: uncomplicated Qualified Code(s): F17.210 - Nicotine dependence, cigarettes, uncomplicated (5) Schizophrenia Current Visit: Yes Status: Chronic (6) Injury due to hypodermic needle Current Visit: No Status: Acute (7) HIV (human immunodeficiency virus infection) Current Visit: Yes Status: Chronic Qualifiers: HIV symptom status: asymptomatic Qualified Code(s): Z21 - Asymptomatic human immunodeficiency virus [HIV] infection status (8) History of schizophrenia Current Visit: No Status: Chronic (9) Substance induced mood disorder Current Visit: No Status: Suspected - AMA Did Patient Leave Against Medical Advice: No
[2019-04-12 10:10] VITALS: BP 108/57; PULSE 59; TEMP 99.1
[2019-04-12] MEDS: NICOTINE 21 MG/24 HOURS TOPICAL PATCH TD SCH (10:56)
[2019-04-12] MEDS: HALOPERIDOL 5 MG TABLET (FP) PO SCH (10:56)
[2019-04-12] MEDS: LITHIUM CARBONATE 300 MG CAPSULE (FP) PO SCH (10:56)
[2019-04-12] MEDS: PRENATAL VITAMINS W/ FOLIC ACID TABLET (FP) PO SCH (10:56)
== END 2019-04-12 11:11 | disposition home or self-care (01) | DRG 773 ==
LOC: YASAS 08:50 → Y6N 09:47
PROVIDERS: ADMIT Surgery; ATTEND Surgery
PROC: HZ2ZZZZ Detoxification Services for Substance Abuse Treatment (ICD-10-PCS; principal; 2019-04-07)
DX: F11.23 Opioid dependence with withdrawal (principal); F14.20 Cocaine dependence, uncomplicated; F17.210 Nicotine dependence, cigarettes, uncomplicated; F20.9 Schizophrenia, unspecified; F19.24 Other psychoactive substance dependence with psychoactive substance-induced mood disorder; Z21 Asymptomatic human immunodeficiency virus [HIV] infection status; S80.212A Abrasion, left knee, initial encounter; S80.211A Abrasion, right knee, initial encounter; W19.XXXA Unspecified fall, initial encounter; Y93.9 Activity, unspecified; Y92.9 Unspecified place or not applicable
CPT/HCPCS: 36415; 80053; 80178; 81003; 85027; 86593; 90670